=== PATIENT | male | born 1990 | race African-American/Black ===

== ENCOUNTER 2023-07-05 12:37 | Emergency (ER) | payer MEDICAID, OTHER ==
[~2023-07-05] VITALS: Ht 177.8 cm; Wt 80.0 kg
[2023-07-05 12:42] VITALS: O2SAT 97
[2023-07-05] MEDS ORDERED: LORAZEPAM 2MG/ML CPJ IV STA (12:57)
[2023-07-05] MEDS ORDERED: SODIUM CHLORIDE 0.9% 1,000 ML IV ONE ×2 (13:00→14:15)
[2023-07-05 13:46] LABS: HEMATOCRIT. 47.2 % (42.0-52.0); HEMOGLOBIN. 15.5 g/dL (14.0-18.0); MEAN CORPUSCULAR HEMOGLOBIN 30.2 pg (28.0-32.0); MEAN CORPUSCULAR HGB CONC 32.8 g/dL (31.0-37.0); MEAN CORPUSCULAR VOLUME 91.9 fL (80.0-94.0); MEAN PLATELET VOLUME 10.3 fl (7.4-10.4); PLATELET 236 x1000/uL (130-400); RED BLOOD CELL COUNT 5.13 mill/uL (4.7-6.1); RED CELL DISTRIBUTION WIDTH 13.9 % (11.6-14.6); WHITE BLOOD COUNT 27.4 x1000/uL (4.5-11.0)
[2023-07-05 13:48] LABS: CHLORIDE 104 mEq/L (98-107); INDEX HEMOLYSI 3 (1-3); INDEX ICTERIC 1 (1-4); INDEX LIPEMIC 1 (1-3); POTASSIUM 3.6 mEq/L (3.5-5.1); SODIUM 137 mEq/L (136-145)
[2023-07-05 13:56] LABS: ACETAMINOPHEN <2 ug/mL ug/mL (10-30); ALANINE AMINOTRANSFERASE 32 IU/L (13-61); ALBUMIN 4.9 g/dL (3.4-5.0); ASPARTATE AMINOTRANSFERASE 40 IU/L (15-37); BILIRUBIN TOTAL 1.6 mg/dL (0.1-1.0); CARBON DIOXIDE 19 mEq/L (21-32); CREATININE 2.2 mg/dL (0.6-1.3); ETHANOL BLOOD < 10 mg/dL (-10); GLUCOSE 83 mg/dL (70-105); PROTEIN TOTAL 9.2 g/dL (6.0-8.3); UREA NITROGEN BLOOD 28 mg/dL (7-21)
[2023-07-05 13:58] LABS: DIFFERENTIAL COMMENT 1
[2023-07-05 14:21] LABS: TROPONIN I HIGH SENSITIVITY 36 ng/L (<78)
[2023-07-05 14:37] LABS: PLATELET ESTIMATE NORMAL
[2023-07-05 19:25] VITALS: BP 138/70; PULSE 95; RESP 16; TEMP 98.4
== END 2023-07-05 19:26 | disposition home or self-care (01) ==
LOC: ER 12:37
DX: F15.10 Other stimulant abuse, uncomplicated (principal); N17.9 Acute kidney failure, unspecified
CPT/HCPCS: 80053; 80307; 80329; 80320; 85025; 84484; 36415; 93005; 96374; 99285; J2060; J7030; G0480

== ENCOUNTER 2024-04-04 07:10 | Emergency (ER) | payer MEDICAID, OTHER ==
[~2024-04-04] VITALS: Ht 180.3 cm; Wt 73.0 kg
[2024-04-04 07:12] VITALS: O2SAT 100
[2024-04-04] MEDS: TERBUTALINE SULFATE 1MG/ML VIAL SUBCUT ONE (08:37)
[2024-04-04] MEDS: MORPHINE SULFATE 4 MG/ML INJ (FOR IV/IM USE) IV ONE (11:23)
[2024-04-04] MEDS ORDERED: PHENYLEPHRINE 100MCG/ML 10ML VIAL (PRIAPISM) MC NR (14:00)
[2024-04-04] MEDS ORDERED: TERB2.5T2 PO (15:57)
[2024-04-05 03:26] VITALS: BP 120/46; PULSE 63; RESP 16; TEMP 98.7
== END 2024-04-05 03:29 ==
LOC: ER 07:10
DX: N48.33 Priapism, drug-induced (principal); F15.10 Other stimulant abuse, uncomplicated; Z86.59 Personal history of other mental and behavioral disorders
CPT/HCPCS: 54220; 96372; 96374; 99284; J2370; J3105; J2270